=== PATIENT | male | born 1960 | race Two or more races ===

== ENCOUNTER 2025-07-12 10:03 | Emergency (ER) | payer OTHER ==
[~2025-07-12] VITALS: Ht 185.4 cm; Wt 122.0 kg
[~2025-07-12 10:03] MED LIST: AVAPRO300 MG; HYDROCHLOROTH12.5 M1
[2025-07-12] MEDS ORDERED: COZAAR50 MG PO (10:31)
[2025-07-12] MEDS ORDERED: ATORVASTATIN CA10 MG PO (10:32)
[2025-07-12 12:37] LABS: BASO % 0.9 % (0.1-1.2); EOS # 0.00 (0.04-0.54); EOS % 0.0 % (0.7-7.0); LYMPH # 1.79 (1.18-3.74); LYMPH % 27.0 % (19.3-53.1); MEAN PLATELET VOLUME 10.30 fl (9.4-12.4); MONO # 0.61 (0.24-0.82); MONO % 9.2 % (4.7-12.5); NEUT # 4.15 (1.56-6.13); NEUT % 62.6 % (34.0-71.1); RED CELL DISTRIBUTION WIDTH 13.2 % (11.6-14.4)
[2025-07-12 12:44] LABS: URINE APPEARANCE Clear; URINE BILIRRUBIN Negative (NEGATIVE); URINE BLOOD Small; URINE COLOR Yellow; URINE GLUCOSE Negative (NEGATIVE); URINE KETONE Negative (NEGATIVE); URINE LEUKOCYTE Negative; URINE NITRATE Negative; URINE PROTEIN Negative (NEGATIVE); URINE UROBILINOGEN 0.2 E.U./dl
[2025-07-12 12:45] LABS: URINE BACTERIA 8.3 uL (0.0-1933); URINE EPITHELIAL CELLS 6.2 uL (0.0-38.8); URINE RBC 69.5 uL (0.0-20.8); URINE WBC 17.5 uL (0.0-23.2)
[2025-07-12 13:44] LABS: URINE CAST 0.14 uL (0.0-1.40)
[2025-07-12 13:56] LABS: ALT/SGPT 32.0 U/L (12-78); AST/SGOT 23.0 U/L (15-37); BILIRUBIN TOTAL 0.4 mg/dL (0.3-1.2); BUN CREA RATIO 21.0 (7.0-25.0); CREATININE SERUM 0.76 mg/dL (0.70-1.30); GFR 102.61; GLOBULINA 3.3 G/DL (2.4-3.5); GLUCOSE FASTING 88.0 mg/dL (65-100); OSMOLALITY SERUM 289.0 MOSM/KG (275-295)
[2025-07-12] MEDS ORDERED: AMOX-CLAV 875-1 EACH PO (17:03)
== END 2025-07-12 17:21 | disposition home or self-care (01) ==
LOC: ER 10:03
PROVIDERS: Preventive Medicine Public Health & General Preventive Medicine
DX: R30.0 Dysuria (principal); I10 Essential (primary) hypertension; Z98.84 Bariatric surgery status; K57.30 Diverticulosis of large intestine without perforation or abscess without bleeding